=== PATIENT | male | born 1955 | race Caucasian/White ===

== ENCOUNTER 2017-06-01 08:12 | Emergency (ER) | payer SELFPAY, MEDICAID | END 2017-06-01 12:47 | disposition left against medical advice (07) | LOC: E/R 08:12 | DX: Z53.21 Procedure and treatment not carried out due to patient leaving prior to being seen by health care provider (principal) ==

== ENCOUNTER 2017-06-02 08:14 | Emergency (ER) | payer BC ==
[2017-06-02 08:53] LABS: ADD MAN DIFF? NO
[2017-06-02] MEDS: NITROGLYCERIN 2% 1 GM OINT PKT TD (08:56)
[2017-06-02] MEDS: ASPIRIN 81 MG TAB PO (08:56)
[2017-06-02] MEDS: NITROGLYCERIN (SL) 0.4 MG TAB SL (08:57)
[2017-06-02 08:58] LABS: WHITE BLOOD COUNT 3.3 10^3/ul (4.8-10.8)
[2017-06-02 08:58] LABS: BASOPHILS % 0.9 % (0.0-2.0); EOSINOPHILS # 0.2 10^3/ul (0.0-0.5); EOSINOPHILS % 4.5 % (0.0-7.0); HEMATOCRIT 36.2 % (42.0-52.0); HEMOGLOBIN 12.6 g/dl (14.0-18.0); LYMPHOCYTES # 1.3 10^3/ul (0.8-2.9); LYMPHOCYTES % 40.1 % (15.0-51.0); MEAN CORPUSCULAR HEMOGLOBIN 28.6 pg (29.0-33.0); MEAN CORPUSCULAR HGB CONC 34.8 g/dl (32.0-37.0); MEAN CORPUSCULAR VOLUME 82.1 fl (82.0-101.0); MONOCYTE # 0.3 10^3/ul (0.3-0.9); NEUTROPHIL # 1.5 10^3/ul (1.6-7.5); NEUTROPHILS % 45.2 % (39.0-77.0); PLATELET COUNT 166 10^3/UL (140-415); RED BLOOD COUNT 4.41 10^6/ul (4.70-6.10); RED CELL DISTRIBUTION WIDTH 12.8 % (11.5-14.5)
[2017-06-02 09:20] LABS: ANION GAP 15 (8-16); BLOOD UREA NITROGEN 13 mg/dl (7-20); CALCIUM 9.1 mg/dl (8.4-10.2); CARBON DIOXIDE 24 mmol/L (21-31); CHLORIDE 109 mmol/L (97-110); GLUCOSE 106 mg/dl (70-220); POTASSIUM 3.9 mmol/L (3.5-5.1); SODIUM 144 mmol/L (135-144)
[2017-06-02 09:32] LABS: TROPONIN-I < 0.012 ng/ml (0.00-0.12)
== END 2017-06-02 12:31 | disposition short-term general hospital (02) ==
LOC: E/R 08:14
DX: R07.9 Chest pain, unspecified (principal); R40.2142 Coma scale, eyes open, spontaneous, at arrival to emergency department; R40.2252 Coma scale, best verbal response, oriented, at arrival to emergency department; R40.2362 Coma scale, best motor response, obeys commands, at arrival to emergency department
CPT/HCPCS: 36415; 71045; 80048; 84484; 85025; 93005; 99285-25

== ENCOUNTER 2018-08-15 14:58 | Emergency (ER) | payer OTHER ==
[2018-08-15] MEDS: LORAZEPAM 0.5 MG TAB PO (18:26)
[2018-08-15] MEDS: KETOROLAC 30 MG INJ IM (18:26)
== END 2018-08-15 20:27 | disposition home or self-care (01) ==
LOC: E/R 14:58
DX: G44.209 Tension-type headache, unspecified, not intractable (principal); R20.2 Paresthesia of skin; F41.9 Anxiety disorder, unspecified
CPT/HCPCS: 70450; 93005; 96372; 99285-25